=== PATIENT | female | born 1960 | race Caucasian/White ===

== ENCOUNTER → 2018-07-27 09:17 | Outpatient (CLI) | payer OTHER, SELFPAY ==
--- NOTE | 2018-07-27 08:00 | RAD_ITS ---
PROCEDURE: Fluoroscopic guided Hip Injection DATE: July 27, 2018. INDICATION: Female, 58 years old. Chronic pain. PHYSICIAN: Naeem Bunn M.D. MEDICATIONS: 6 mg of betamethasone and 3 cc of 1% lidocaine. 2% Lidocaine administered subcutaneously for local anesthesia. ACCESS SITE: Right hip. NEEDLE: 22-gauge spinal needle. FLUOROSCOPY TIME (if supplied): (1:01) minutes/seconds FINDINGS: The risks, benefits, and alternatives to the procedure were explained to the patient. The specific risks of bleeding, infection, and neurovascular injury were detailed and accepted. Witnessed informed consent was obtained. A 22-gauge spinal needle was positioned under radiographic fluoroscopic localization. Approximately 2 cc of Isovue-300 instilled for localization purposes. Medication was then injected. The patient tolerated the procedure well without any immediate complications. The patient was placed supine with head elevated and returned to the floor in stable condition. RAD/Inj/Asp Demond Jt Should/Hip/Knee IMPRESSION: 1. Successful fluoroscopic guided hip injection. Electronically Signed: Naeem Bunn, at 10:46 EST , Service support ,
== END ==
PROVIDERS: Family Provider Family Medicine; PCP Family Medicine; Referring Provider Specialist; Visit Provider Specialist
DX: M16.11 Unilateral primary osteoarthritis, right hip (principal)
CPT/HCPCS: 20610; 77002; Q9967; J0702

== ENCOUNTER 2020-08-01 15:05 | Outpatient (RCR) | payer OTHER, SELFPAY ==
[2020-08-01] MEDS: COVID-19 VACC, MRNA(PFIZER)/PF 30 MCG/0.3 ML SYRINGE IM (15:02)
[2020-08-22] MEDS: COVID-19 VACC, MRNA(PFIZER)/PF 30 MCG/0.3 ML SYRINGE IM (14:55)
== END 2020-10-28 23:59 ==
LOC: IMMUN 15:05
PROVIDERS: PCP Family Medicine; Referring Provider Family Medicine; Visit Provider Family Medicine
DX: Z23 Encounter for immunization (principal)
CPT/HCPCS: 0001A; 0002A; 91300

== ENCOUNTER 2024-03-28 11:55 | Outpatient (CLI) | payer MEDICARE, SELFPAY ==
[2024-03-28 12:38] LABS: Erythrocyte Sedimentation Rate 10 mm/hr (0-30)
[2024-03-28 12:41] LABS: Absolute Lymphocyte Count 2.04 X10^3/uL (0.83-4.51); Basophil# 0.06 X10^3/uL; Basophil% 0.9 % (0-1); Eosinophil# 0.19 X10^3/uL; Eosinophils% 2.8 % (0-5); Hematocrit 45.9 % (37-47); Hemoglobin 15.9 g/dL (12.0-15.0); Lymphocyte # 2.04 X10^3/ul (0.83-4.51); Lymphocyte % 30.3 % (19-41); Mean Corp Hgb Conc 34.6 g/dL (32-36); Mean Corpuscular Hgb 32.2 pg (27.0-32.0); Mean Corpuscular Volume 92.9 fL (81-99); Mean Platelet Vol. 8.9 fl (6.2-12.0); Monocyte# 0.42 X10^3/uL; Monocyte% 6.2 % (0-10); NRBC Flagged by Analyzer 0 % (0-5); Neutrophil % 59.5 % (47-70); Platelet Count 266 K/mm3 (150-450); RBC Distribution Width CV 12.3 % (11.6-14.6); RBC Distribution Width SD 41.8 fl (35.1-43.9); Red Blood Count 4.94 M/mm3 (4.2-5.4); White Blood Count 6.7 K/mm3 (4.4-11.0)
[2024-03-28 13:15] LABS: ALB/GLOB Ratio 0.9 RATIO (0.9-2.4); AST(SGOT) 10 U/L (15-37); Alanine Aminotransfer ALT/SGPT 25 U/L (13-56); Albumin, Serum 3.4 g/dL (3.2-5.0); Alkaline Phosphatase 109 U/L (45-117); Anion Gap 4 (5-15); BUN 16 mg/dL (7-18); BUN/Creat Ratio 18.3 RATIO (10-20); CRP 5.24 mg/L (0.0-3.0); Calcium,Total 9.6 mg/dL (8.5-10.1); Chloride 108 mmol/L (98-107); Creatinine, Serum 0.87 mg/dL (0.55-1.02); EST Glomerular Filtration Rate 69 mL/min (>60); Est Glom Filt Rate - Afr Amer 84 mL/min (>60); Free T3 2.3 pg/mL (2.18-3.98); Globulin 3.8 g/dL (2.2-4.2); Glucose 128 mg/dL (74-106); LDH 142 U/L (84-246); Potassium 3.9 mmol/L (3.5-5.1); Protein, Total 7.2 g/dL (6.4-8.2); Sodium Level 137 mmol/L (136-145); T4 Free Direct 0.78 ng/dL (0.76-1.46)
[2024-04-04 10:10] LABS: Anti-Centromere B Ab <0.2 AI (0.0-0.9); Anti-Chromatin <0.2 AI (0.0-0.9); Anti-Jo <0.2 AI (0.0-0.9); Anti-Scleroderma-70 AB <0.2 AI (0.0-0.9); Anti-dsDNA Ab <1 IU/mL (0-9); Beef <0.10 kU/L (Class 0); Chocolate <0.10 kU/L (Class 0); Codfish <0.10 kU/L (Class 0); Corn <0.10 kU/L (Class 0); Egg, Whole <0.10 kU/L (Class 0); Milk (Cow) <0.10 kU/L (Class 0); Mussels <0.10 kU/L (Class 0); Peanut <0.10 kU/L (Class 0); Pork <0.10 kU/L (Class 0); RNP Ab 0.4 AI (0.0-0.9); SJOGREN'S Anti-SS-A test < 0.2 AI (0.0-0.9); SJOGREN'S Anti-SS-B test < 0.2 AI (0.0-0.9); Salmon <0.10 kU/L (Class 0); Shrimp 0.24 kU/L (Class 0/I); Smith Ab <0.2 AI (0.0-0.9); Soybean <0.10 kU/L (Class 0); Tuna <0.10 kU/L (Class 0); Wheat <0.10 kU/L (Class 0)
[2024-04-05 06:10] LABS: ACCA 3 units (0-90); ALCA 14 units (0-60); AMCA 30 units (0-100); Albumin 3.4 g/dL (2.9-4.4); Alpha-1-Globulins 0.3 g/dL (0.0-0.4); Alpha-2-Globulins 0.7 g/dL (0.4-1.0); Cytoplasmic Ab (C-ANCA) <1:20 titer (Neg:<1:20); Endomysial Antibody IgA Negative (Negative); Gamma Globulin 1.3 g/dL (0.4-1.8); Immunoglobulin A 326 mg/dL (87-352); Immunoglobulin E 100 IU/mL (6-495); Immunoglobulin G 1204 mg/dL (586-1602); Immunoglobulin M 101 mg/dL (26-217); Perinuclear Ab (P-ANCA) <1:20 titer (Neg:<1:20); gASCA 31 units (0-50); t-Transglutaminase IgA <2 U/mL (0-3)
== END 2024-03-28 23:59 | disposition home or self-care (01) ==
PROVIDERS: PCP Family Medicine; Referring Provider Student in an Organized Health Care Education/Training Program; Visit Provider Student in an Organized Health Care Education/Training Program
DX: R19.7 Diarrhea, unspecified (principal)
CPT/HCPCS: 36415; 80053; 82784; 82785; 83516; 83615; 84165; 84439; 84443; 84481; 85025; 85652; 86003; 86005; 86036; 86037; 86140; 86225; 86235; 86255; 86334; 86671

== ENCOUNTER → 2024-03-29 | Outpatient (CLI) | payer MEDICARE, SELFPAY ==
[2024-04-02 15:07] LABS: Pancreatic Elastase, Fecal > 800 (>200)
== END | disposition home or self-care (01) ==
PROVIDERS: PCP Family Medicine; Referring Provider Student in an Organized Health Care Education/Training Program; Visit Provider Student in an Organized Health Care Education/Training Program
DX: K58.9 Irritable bowel syndrome, unspecified (principal); R19.7 Diarrhea, unspecified
CPT/HCPCS: 82653; 83630; 87177; 87209; 87329

== ENCOUNTER 2024-08-24 06:50 | Emergency (ER) | payer MEDICARE, SELFPAY ==
[2024-08-24 06:50] VITALS: BP 156/70; PULSE 56; RESP 16; TEMP 36.3; O2SAT 97; BMI 38.2
--- NOTE | 2024-08-24 07:07 | CT_ITS ---
PROCEDURE: ABDOMEN/PELVIS W IV CONT ONLY 08/24/2024 REASON FOR EXAM: LEFT SIDE PAIN TECHNIQUE: Abdomen and pelvis CT with intravenous contrast. Coronal and Sagittal reconstruction series were provided. PATIENT PREPARATION: Per protocol ORAL CONTRAST TYPE: None. CONTRAST: 74 cc Isovue 370 IV One or more dose reduction techniques were used (e.g., Automated exposure control, adjustment of the mA and/or kV according to patient size, use of iterative reconstruction technique. RADIATION DOSE SUMMARY: CTDlvol: 23.94 mGy DLP: 1385.16 mGycm COMPARISON: None available FINDINGS: Mild dependent basilar atelectasis. Sequela of previous granulomatous disease. The liver, adrenal glands, pancreas and spleen appear within limits. The gallbladder is not identified. CBD appears within limits. Appearance suggest possible bilateral left mildly larger than right parapelvic renal cysts versus collecting system dilation. Delayed images through the kidneys would have been helpful. The proximal ureters are nondilated. Symmetric nephrograms without perinephric stranding. No evidence of intrarenal stone identified. Aortoiliac atherosclerotic calcification. No abdominal aortic aneurysm. No adenopathy. No bowel dilation or free air. Normal caliber appendix without secondary signs. Status post apparent hysterectomy. The bladder is mostly collapsed and appears within limits. No pelvic free fluid. L2-3 spondylosis/discogenic change with disc space narrowing and minimal retrolisthesis L2 on L3. Mild anterolisthesis L4 on L5. Facet degenerative changes. Transitional appearing L5 segment. CT/Abdomen/Pelvis W IV Cont ONLY IMPRESSION: Appearance suggest possible bilateral left mildly larger than right parapelvic renal cysts versus collecting system dilation. Delayed images through the kidneys would have been helpful. The proximal ureter s are nondilated. Symmetric nephrograms without perinephric stranding. No evidence of intrarenal stone identified. No bowel dilation or free air. Normal caliber appendix without secondary signs. Lumbar spondylosis/discogenic change. Reading Location: [id number]
--- NOTE | 2024-08-24 07:08 | EX.ED.DYSGE1 ---
HPI History of Present Illness Chief Complaint: Flank Pain Informant: patient and spouse/S.O. Narrative Narrative: 64-year-old female presenting to the emergency room with nausea and left side pain. Patient states that last night after dinner she developed a sharp stabbing pain in the left side of her abdomen. She points to more the mid axillary line just under her rib cage. She notes the pain is constant. She notes it is nonradiating. She had a normal bowel movement this morning. She denies any fever or changes in stool. She did eat chili that was homemade and spicy. She notes a history of IBS. She denies history of kidney stones or frequent urinary tract infections. She denies any trauma or falls or lifting injuries. She denies rash. She notes she cannot find a position of comfort. Pain is not necessarily made worse with movement. PFSH PFSH Medical History Anxiety Hypertension Asthma De Quervain's tenosynovitis, left Squamous cell carcinoma Home Medications ?Medication ?Instructions ?Recorded ?Last Taken ?Type citalopram 30 mg capsule 20 mg PO DAILY 03/28/24 Unknown History famotidine 20 mg tablet 20 mg PO BID 03/28/24 Unknown History albuterol sulfate 90 mcg/actuation 2 inh inhalation Q4H PRN asthma 03/29/24 Unknown History breath activated powder inhaler atenolol 50 mg tablet 75 mg PO QDAY 03/29/24 Unknown History ondansetron 4 mg disintegrating 4 mg PO Q6H PRN PRN Nausea #15 tabs 08/24/24 Unknown Rx tablet oxycodone-acetaminophen 5 mg-325 1 tab PO Q6H PRN PRN Pain 3 days 08/24/24 Unknown Rx mg tablet #12 TABLETS Allergy/AdvReac Type Severity Reaction Status Date / Time adhesive Allergy Itching Verified 08/24/24 06:56 Sulfa (Sulfonamide Allergy Rash Verified 08/24/24 06:56 Antibiotics) meperidine AdvReac Vomiting Verified 08/24/24 06:56 ANESTHESIA AdvReac Vomiting Uncoded 03/29/24 13:23 Family History Father Acute angina High cholesterol Arthritis Heart disease Hyperlipidemia Myocardial infarction COPD (chronic obstructive pulmonary disease) Hypertension Mother Age: 86 Diabetes High cholesterol Arthritis Myocardial infarction Hypertension Thyroid disorder Asthma Sister Age: 67 Diabetes Diverticulosis GERD (gastroesophageal reflux disease) Anxiety Arthritis Heart disease Hypertension Esophageal spasm Grandfather High cholesterol Heart disease Myocardial infarction Hypertension Grandmother Diabetes Diverticulosis High cholesterol Arthritis Hypertension Parkinsons disease Meniere disease Hiatal hernia Surgical History History of squamous cell carcinoma excision History of surgery on left wrist Hx of cholecystectomy Social History current occupational status: retired Smoking Status: Never smoker alcohol intake: current alcohol intake frequency: holidays/special occasions only substance use type: does not use ROS ROS ED Constitutional Constitutional ED: Denies chills, fever(s) or weight loss Eyes Eyes: Denies change in vision or diplopia ENT ENT ED: Denies ear pain, rhinorrhea or sore throat Cardiovascular Cardiovascular: Denies chest pain, orthopnea, palpitations or racing heartbeat Respiratory/Chest Respiratory/Chest: Denies cough, dyspnea or orthopnea Gastrointestinal Gastrointestinal: Reports abdominal pain, nausea and vomiting; Denies diarrhea Genitourinary Genitourinary ED: Denies dysuria, hematuria or urinary frequency Musculoskeletal Musculoskeletal: Denies arthralgias or myalgias Integumentary Denies abscess or rash Neurologic Neurologic: Denies headache(s) or weakness Psychiatric Psychiatric: Denies anxiety, depression, suicidal ideation or suicidal thoughts Endocrine Endocrinology: Denies polydipsia, polyphagia or polyuria Allergic/Immunologic Allergic/Immunologic ED: Denies mouth swelling, tongue swelling or urticaria EXAM Physical Exam Const Vital Signs: 08/24/24 06:50 Temperature 97.3 F L Temperature Source Oral Pulse Rate 56 L Respiratory Rate 16 Blood Pressure 156/70 H Blood Pressure Mean 98 Pulse Ox 97 Oxygen Delivery Method Room Air Positive well nourished, well developed and obese General Appearance ED: well developed and NAD Nutritional Appearance: obese HEENT Reports normocephalic, head/scalp atraumatic and moist mucous membranes Eyes PERRL and EOMs intact bilaterally Neck no lymphadenopathy, supple and no JVD Resp normal respiratory effort and clear to auscultation bilaterally Cardio regular rate, regular rhythm and no murmurs GI normal to inspection, nondistended, normoactive bowel sounds and non-tender Palpation: soft Back/Spine no CVA tenderness and normal ROM Extremity normal to inspection General Extremety ED: Negative for edema General Extremity: Negative for edema Neuro oriented x3 and CN's II-XII intact bilaterally Sensorium / Orientation: alert Motor Exam: strength 5/5 throughout Psych mental status grossly normal Mood & Affect: Negative for depressed or tearful Skin no rashes or lesions noted and no wounds MDM MDM MDM Narrative Medical decision making narrative: Differential diagnosis includes but not limited to kidney stone diverticulitis colitis splenic injury renal infarct renal abscess UTI/pyelonephritis shingles muscular strain White count is normal at 8.5 hemoglobin of 16 platelet count of 306. Normal creatinine at 0.92. CT of the abdomen pelvis was obtained read by radiology reviewed by myself. Please see radiologist read. I do not see any ureterolithiasis. Do not see any inflammatory changes. Urinalysis obtained is nitrate and leukocyte Estrace negative. 0 reds 0 white cells 0-5 squamous cells. No obvious bacteria seen. Patient received a dose of Toradol as well as Zofran and IV fluids. I believe the patient can be discharged home at this point. She is updated with the above findings. We talked about monitoring for changes and return instructions particularly in the next 24 hours. I will write for a few oxycodone as well as Zofran. Patient is comfortable with the plan History & Record Review Discussion w/independent historian: Patient and Significant other Lab Data Attestation: I reviewed the patient's lab results. Labs: Laboratory Results - last 24 hr 08/24/24 08/24/24 08/24/24 06:56 08:02 08:13 WBC 8.5 RBC 4.97 Hgb 16.0 H Hct 47.3 H MCV 95.2 MCH 32.2 H MCHC 33.8 RDW Std Deviation 44.1 H RDW Coeff of Malena 12.6 Plt Count 306 MPV 9.0 Immature Gran % (Auto) 0.200 Neut % (Auto) 43.8 L Lymph % (Auto) 46.6 H [place] % (Auto) 7.4 Eos % (Auto) 1.2 Baso % (Auto) 0.8 Absolute Neuts (auto) 3.7 Absolute Lymphs (auto) 3.96 Nucleated RBC % 0 Sodium 138 Potassium 4.1 Chloride 104 Carbon Dioxide 24.0 Anion Gap 11 BUN 15 Creatinine 0.92 Estim Creat Clear Calc 67.98 Est GFR (MDRD) Non-Af 69 BUN/Creatinine Ratio 16.1 Glucose 137 H Calcium 9.7 Urine Color Cancelled Yellow Urine Clarity Cancelled Clear Urine pH Cancelled 5.0 Ur Specific [place] Cancelled 1.020 U Specif Grav (Refrac) Cancelled Urine Protein Cancelled 15 H Urine Glucose (UA) Cancelled Normal Urine Ketones Cancelled Negative Urine Occult Blood Cancelled Negative Urine Nitrite Cancelled Negative Urine Bilirubin Cancelled Negative Urine Urobilinogen Cancelled Normal Ur Leukocyte Esterase Cancelled Negative Urine RBC Cancelled 0 SEEN Urine WBC Cancelled 0 SEEN Ur Squamous Epith Cells Cancelled 0-5 SEEN Ur Transition Epith Cell Cancelled Ur Renal Epithelial Cell Cancelled Calcium Oxalate Crystal Cancelled Uric Acid Crystals Cancelled Triple Phos Crystals Cancelled Other Crystals Cancelled Amorphous Sediment Cancelled Urine Bacteria Cancelled 0 SEEN Hyaline Casts Cancelled Fine Granular Casts Cancelled Coarse Granular Casts Cancelled Waxy Casts Cancelled RBC Casts Cancelled WBC Casts Cancelled Urine Mucus Cancelled 0 SEEN Urine Trichomonas Cancelled Urine Yeast Cancelled Radiography Diagnostic Testing: Clinical Impression(s) from Imaging Studies Abdomen/Pelvis CT 08/24/24 07:07 IMPRESSION: Appearance suggest possible bilateral left mildly larger than right parapelvic renal cysts versus collecting system dilation. Delayed images through the kidneys would have been helpful. The proximal ureters are nondilated. Symmetric nephrograms without perinephric stranding. No evidence of intrarenal stone identified. No bowel dilation or free air. Normal caliber appendix without secondary signs. Lumbar spondylosis/discogenic change. Reading Location: [facility] Discharge Plan Triage Chief Complaint: Flank Pain ED Provider: Ashok Cruz Dx/Rx/DC Orders Clinical Impression: Acute left flank pain, Nausea Instructions: ED Flank Pain, Uncertain Cause Prescriptions: New oxycodone-acetaminophen 5-325 mg tablet 1 tab PO Q6H PRN PRN (Reason: Pain) 3 Days Qty: 12 0RF ondansetron 4 mg tablet,disintegrating 4 mg PO Q6H PRN PRN (Reason: Nausea) Qty: 15 0RF No Action citalopram 30 mg capsule 20 mg PO DAILY famotidine 20 mg tablet 20 mg PO BID atenolol 50 mg tablet 75 mg PO QDAY albuterol sulfate 90 mcg/actuation aerosol powdr breath activated 2 inh inhalation Q4H PRN (Reason: asthma) Primary Care Provider: Toi Gonsales Referrals: Toi Gonsales MD [Primary Care Provider] - 1-2 Days if not improving Activity Restrictions/Additional Instructions: If you have new or worsening symptoms or continued symptoms unable to see your primary care doctor please return to emergency particularly in the next 24 to 48 hours. We are performing a urine culture which can take 48 to 72 hours to return. If this is positive you will receive a phone call from the emergency department. Print Language: Ivorian Disposition Disposition: Home, Self Care
[2024-08-24] MEDS: Ketorolac 30 MG/ML Syringe IV (07:15)
[2024-08-24] MEDS: 0.9% Normal Saline (1000mL) 1,000 ML 1000 ML IV (07:15)
[2024-08-24] MEDS: Ondansetron 4 MG/2 ML Vial IV (07:15)
[2024-08-24 07:23] LABS: Absolute Lymphocyte Count 3.96 X10^3/uL (0.83-4.51); Absolute Neutrophil Count 3.7 X10^3/uL (2.0-7.7); Basophil# 0.07 X10^3/uL; Basophil% 0.8 % (0-1); Eosinophils% 1.2 % (0-5); Hematocrit 47.3 % (37-47); Lymphocyte # 3.96 X10^3/ul (0.83-4.51); Lymphocyte % 46.6 % (19-41); Mean Corp Hgb Conc 33.8 g/dL (32-36); Mean Corpuscular Hgb 32.2 pg (27.0-32.0); Mean Corpuscular Volume 95.2 fL (81-99); Monocyte# 0.63 X10^3/uL; Monocyte% 7.4 % (0-10); NRBC Flagged by Analyzer 0 % (0-5); Neutrophil # 3.72 X10^3/uL (2.7-7.7); Neutrophil % 43.8 % (47-70); Platelet Count 306 K/mm3 (150-450); RBC Distribution Width CV 12.6 % (11.6-14.6); RBC Distribution Width SD 44.1 fl (35.1-43.9); Red Blood Count 4.97 M/mm3 (4.2-5.4); White Blood Count 8.5 K/mm3 (4.4-11.0)
[2024-08-24 07:52] LABS: Anion Gap 11 (5-15); BUN 15 mg/dL (4-19); BUN/Creat Ratio 16.1 RATIO (10-20); Calcium,Total 9.7 mg/dL (7.6-11.0); Chloride 104 mmol/L (98-108); Creatinine, Serum 0.92 mg/dL (0.70-1.20); EST Glomerular Filtration Rate 69 (>60); Estimated Creatinine Clearance 67.98 ml/min (50-250); Glucose 137 mg/dL (70-99); Potassium 4.1 mmol/L (3.3-5.1); Sodium Level 138 mmol/L (133-145)
[2024-08-24 08:29] LABS: Bacteria 0 SEEN /hpf (None Seen); Mucous, Urine 0 SEEN /hpf (<or=2+); Red Blood Cells-Urine 0 SEEN /hpf (0-5); White Blood Cells 0 SEEN /hpf (0-5)
[2024-08-24 08:32] LABS: Color, Urine Yellow (Yellow); Glucose, Dipstick Normal (Normal); Ketone-Dipstick Negative (Negative); Leukocyte Esterase-Dipstick Negative /ul (Negative); Nitrite-Dipstick Negative (Negative); Occult Blood-Urine Negative /ul (Negative); Protein-Dipstick 15 mg/dl (Negative); Urine Bilirubin Dipstick Negative (Negative); Urine Clarity Clear (Clear); Urine Urobilinogen Normal (Normal)
[2024-08-24 08:40] LABS: Squamous Epithelial Cells - UA 0-5 SEEN /hpf (5-10)
[2024-08-24 08:53] VITALS: BP 132/76; PULSE 78; RESP 16; TEMP 37.1; O2SAT 99
== END 2024-08-24 08:54 | disposition home or self-care (01) ==
PROVIDERS: Emergency Provider Emergency Medicine; PCP Family Medicine; Visit Provider Emergency Medicine
DX: R10.9 Unspecified abdominal pain (principal); I10 Essential (primary) hypertension; R11.0 Nausea; F41.9 Anxiety disorder, unspecified; Z79.899 Other long term (current) drug therapy; Z85.828 Personal history of other malignant neoplasm of skin; Z90.49 Acquired absence of other specified parts of digestive tract
CPT/HCPCS: 74177; 80048; 81001; 85025; 87086; 96361; 96374; 96375; 99283; Q9967; A4216; J2405

== ENCOUNTER 2025-01-16 14:31 | Emergency (ER) | payer MEDICARE, SELFPAY ==
[2025-01-16 14:32] VITALS: BP 175/90; PULSE 58; RESP 16; TEMP 36.7; O2SAT 95; BMI 37.0
--- NOTE | 2025-01-16 14:59 | EX.ED.DYSGE1 ---
HPI History of Present Illness Chief Complaint: Abd Pain Narrative Narrative: Chief complaint and HPI: Left lower quadrant abdominal pain. 64-year-old female with past medical history of GERD, IBS, HTN presents for evaluation of left lower quadrant abdominal pain. Onset of symptoms since Tuesday. Associated symptoms are nausea, nonbloody/nonbilious emesis, nonbloody diarrhea. States her last colonoscopy was several years ago and unremarkable. she denies any fever, chills, shortness of breath, chest pain, dysuria. States she was seen at an urgent care center to the emergency department. Review of systems: See HPI Medications: As listed on the chart Allergies: As listed on the chart PFSH: Per chart Vital signs: As listed on the chart. Reviewed. Physical exam: Gen: A&O x3, NAD Head: Normocephalic, atraumatic Eyes: No sclera icterus, conjunctiva clear ENT: Moist mucous membranes Neck: Trachea midline, No JVD CV: RRR, no murmurs, no peripheral edema Resp: Lungs CTA BL, no w/r/c GI: Abd soft, non-distended, minimal tenderness in the left lower quadrant, no r/r/g Musc: Full ROM, no deformity Skin: Warm, dry Neuro: Alert, oriented, grossly intact, sensation intact Psych: Cooperative, appropriate mood and affect [facility] Medical History Anxiety Hypertension Asthma De Quervain's tenosynovitis, left Squamous cell carcinoma Home Medications ?Medication ?Instructions ?Recorded ?Last Taken ?Type citalopram 30 mg capsule 20 mg PO DAILY 03/28/24 Unknown History famotidine 20 mg tablet 20 mg PO BID 03/28/24 Unknown History albuterol sulfate 90 mcg/actuation 2 inh inhalation Q4H PRN asthma 03/29/24 Unknown History breath activated powder inhaler atenolol 50 mg tablet 75 mg PO QDAY 03/29/24 Unknown History oxycodone-acetaminophen 5 mg-325 1 tab PO Q6H PRN PRN Pain 3 days 08/24/24 Unknown Rx mg tablet #12 TABLETS pantoprazole 40 mg tablet,delayed 40 mg PO QDAY #30 tabs 10/04/24 Unknown Rx release vonoprazan 10 mg tablet (Voquezna) 10 mg PO QDAY #30 tabs 12/19/24 Unknown Rx Allergy/AdvReac Type Severity Reaction Status Date / Time adhesive Allergy Itching Verified 08/24/24 06:56 Sulfa (Sulfonamide Allergy Rash Verified 08/24/24 06:56 Antibiotics) meperidine AdvReac Vomiting Verified 08/24/24 06:56 ANESTHESIA AdvReac Vomiting Uncoded 03/29/24 13:23 Family History Father Acute angina High cholesterol Arthritis Heart disease Hyperlipidemia Myocardial infarction COPD (chronic obstructive pulmonary disease) Hypertension Mother Age: 86 Diabetes High cholesterol Arthritis Myocardial infarction Hypertension Thyroid disorder Asthma Sister Age: 67 Diabetes Diverticulosis GERD (gastroesophageal reflux disease) Anxiety Arthritis Heart disease Hypertension Esophageal spasm Grandfather High cholesterol Heart disease Myocardial infarction Hypertension Grandmother Diabetes Diverticulosis High cholesterol Arthritis Hypertension Parkinsons disease Meniere disease Hiatal hernia Surgical History History of squamous cell carcinoma excision History of surgery on left wrist Hx of cholecystectomy Social History current occupational status: retired Smoking Status: Never smoker alcohol intake: current alcohol intake frequency: holidays/special occasions only substance use type: does not use EXAM Physical Exam Const Vital Signs: 01/16/25 14:32 01/16/25 16:31 Temperature 98.1 F 97.8 F Temperature Source Oral Oral Pulse Rate 58 L 58 L Respiratory Rate 16 18 Blood Pressure 175/90 H 194/85 H Blood Pressure Mean 118 121 Pulse Ox 95 97 Oxygen Delivery Method Room Air Room Air MDM MDM MDM Narrative Medical decision making narrative: 64-year-old female with past medical history of GERD, IBS, HTN presents for evaluation of left lower quadrant abdominal pain. Onset of symptoms since Tuesday. Associated symptoms are nausea, nonbloody/nonbilious emesis, nonbloody diarrhea. Differential diagnosis includes but is not limited to diverticulitis, gastroenteritis, IBS, viral gastroenteritis, electrolyte abnormality, UTI. NS bolus, Zofran, morphine ordered for symptoms. Abdominal pain workup ordered including CT abdomen pelvis. CBC shows mild leukocytosis of 13 with hemoconcentration of 17.6. Likely secondary to mild dehydration from her diarrhea. On chart review, patient has hemoconcentration in the past on previous labs. CMP relatively unremarkable. No transaminitis. No CARLTON. Lipase unremarkable. UA is positive for blood and bacteria however this is a dirty sample with multiple squamous epithelial cells. Negative leuk esterase and WBCs. Will not treat for UTI. Will send for culture. Patient not endorsing any dysuria or frequency. CT abdomen pelvis shows no acute intra-abdominal pathology. 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 Cholecystectomy and hysterectomy. Appendix unremarkable. While in the emergency department, patient did have increasing blood pressure however she admits that she did not take any of her atenolol today. Blood pressure has increased with pain control. At this point in time, no clear etiology to explain patient's symptoms. May be viral illness versus IBS. Recommend following up with GI who she follows with. Will prescribe Bentyl, first dose given here. Return precautions explained. She confirmed understand the plan. Patient stable to discharge home. Impression: 1. Diarrhea 2. Left lower quadrant abdominal pain 3. History of IBS Lab Data Labs: Laboratory Results - last 24 hr 01/16/25 01/16/25 14:50 15:25 WBC 13.0 H RBC 5.43 H Hgb 17.6 H Hct 51.0 H MCV 93.9 MCH 32.4 H MCHC 34.5 RDW Std Deviation 42.5 RDW Coeff of Malena 12.3 Plt Count 311 MPV 8.9 Immature Gran % (Auto) 0.300 Neut % (Auto) 82.9 H Lymph % (Auto) 12.4 L [place] % (Auto) 3.9 Eos % (Auto) 0.2 Baso % (Auto) 0.3 Absolute Neuts (auto) 10.8 H Absolute Lymphs (auto) 1.61 Nucleated RBC % 0 Sodium 136 Potassium 3.7 Chloride 100 Carbon Dioxide 21.2 Anion Gap 14 BUN 15 Creatinine 1.00 Estim Creat Clear Calc 61.46 Est GFR (MDRD) Non-Af 63 BUN/Creatinine Ratio 14.7 Glucose 184 H Calcium 10.3 Total Bilirubin 0.56 AST 23 ALT 21 Alkaline Phosphatase 121 H Total Protein 7.7 Albumin 4.1 Globulin 3.6 Albumin/Globulin Ratio 1.2 Lipase 61 Urine Color Yellow Urine Clarity Turbid Urine pH 5.0 Ur Specific [place] 1.030 Urine Protein 30 H Urine Glucose (UA) 100 H Urine Ketones 5 H Urine Occult Blood 10 H Urine Nitrite Negative Urine Bilirubin Negative Urine Urobilinogen Normal Ur Leukocyte Esterase Negative Urine RBC 0-5 SEEN Urine WBC 0-5 SEEN Ur Squamous Epith Cells 10-25 SEEN Amorphous Sediment 4+ Urine Bacteria 3+ Urine Mucus 0 SEEN Radiography Diagnostic Testing: Clinical Impression(s) from Imaging Studies Abdomen/Pelvis CT 01/16/25 15:45 IMPRESSION: *No acute intra-abdominal or pelvic abnormality. 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 *Post-surgical changes: cholecystectomy and hysterectomy. Reading Location: [facility] Discharge Plan Triage Chief Complaint: Abd Pain ED Provider: Brian Wayne Dx/Rx/DC Orders Prescriptions: No Action citalopram 30 mg capsule 20 mg PO DAILY famotidine 20 mg tablet 20 mg PO BID atenolol 50 mg tablet 75 mg PO QDAY albuterol sulfate 90 mcg/actuation aerosol powdr breath activated 2 inh inhalation Q4H PRN (Reason: asthma) pantoprazole 40 mg tablet,delayed release (DR/EC) 40 mg PO QDAY Qty: 30 1RF oxycodone-acetaminophen 5-325 mg tablet 1 tab PO Q6H PRN PRN (Reason: Pain) 3 Days Qty: 12 0RF Voquezna 10 mg tablet 10 mg PO QDAY Qty: 30 3RF Primary Care Provider: Toi Gonsales Referrals: Toi Gonsales MD [Primary Care Provider] - Print Language: Tunisian
[2025-01-16 15:07] LABS: Hematocrit 51.0 % (37-47); Hemoglobin 17.6 g/dL (12.0-15.0); Immature Granulocytes Count 0.040 X10^3/uL (0.0-0.0); Mean Corp Hgb Conc 34.5 g/dL (32-36); Mean Corpuscular Volume 93.9 fL (81-99); Mean Platelet Vol. 8.9 fl (6.2-12.0); NRBC Flagged by Analyzer 0 % (0-5); Platelet Count 311 K/mm3 (150-450); RBC Distribution Width CV 12.3 % (11.6-14.6); RBC Distribution Width SD 42.5 fl (35.1-43.9); Red Blood Count 5.43 M/mm3 (4.2-5.4); White Blood Count 13.0 K/mm3 (4.4-11.0)
[2025-01-16] MEDS: 0.9% Normal Saline (1000mL) 1,000 ML 999 ML IV (15:30)
[2025-01-16 15:38] LABS: Mucous, Urine 0 SEEN /hpf (<or=2+)
[2025-01-16 15:45] LABS: AST(SGOT) 23 U/L (<=31); Alanine Aminotransfer ALT/SGPT 21 U/L (<=34); Albumin, Serum 4.1 g/dL (3.4-4.8); Alkaline Phosphatase 121 U/L (35-104); Anion Gap 14 (5-15); BUN 15 mg/dL (4-19); BUN/Creat Ratio 14.7 RATIO (10-20); Calcium,Total 10.3 mg/dL (7.6-11.0); Carbon Dioxide 21.2 mmol/L (21.0-32.0); Chloride 100 mmol/L (98-108); Estimated Creatinine Clearance 61.46 ml/min (50-250); Globulin 3.6 g/dL (2.2-4.2); Glucose 184 mg/dL (70-99); Lipase 61 U/L (13-75); Potassium 3.7 mmol/L (3.3-5.1)
--- NOTE | 2025-01-16 15:45 | CT_ITS ---
PROCEDURE: ABDOMEN/PELVIS W IV CONT ONLY 01/16/2025 REASON FOR EXAM: LEFT LOWER QUADRANT ABDOMINAL PAIN TECHNIQUE: ABDOMEN/PELVIS W IV CONT ONLY Coronal and Sagittal reconstruction series were provided. CONTRAST: Isovue-300 VOLUME: 99 mL One or more dose reduction techniques were used (e.g., Automated exposure control, adjustment of the mA and/or kV according to patient size, use of iterative reconstruction technique. RADIATION DOSE SUMMARY: CTDlvol: 9+ 22 mGy DLP: 1312 mGycm FINDINGS: *Lower chest: Lung bases are clear. *Soft tissues: Peripheral soft tissues unremarkable. *Bones: Degenerative changes of the spine. *Vasculature: Normal caliber abdominal aorta. No suspicious lymphadenopathy. *Liver: Unremarkable. *Gallbladder/Biliary: Gallbladder surgically absent. No biliary dilation. *Pancreas: Unremarkable. *Spleen: Small calcifications, likely sequelae of prior granulomatous infection. *Adrenal glands: Unremarkable. *Kidneys/Urinary tract: Symmetric enhancement of the kidneys. Bilateral renal sinuses are normal. No hydronephrosis. Urinary bladder unremarkable. *Reproductive organs: Uterus surgically absent. *Bowel: Normal caliber of large and small bowel without surrounding inflammatory changes. Appendix not specifically mentioned, but no abnormality reported. CT/Abdomen/Pelvis W IV Cont ONLY IMPRESSION: *No acute intra-abdominal or pelvic abnormality. 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 *Post-surgical changes: cholecystectomy and hysterectomy. Reading Location: [id number]
[2025-01-16 15:50] LABS: Color, Urine Yellow (Yellow); Glucose, Dipstick 100 mg/dl (Normal); Ketone-Dipstick 5 mg/dl (Negative); Leukocyte Esterase-Dipstick Negative /ul (Negative); Nitrite-Dipstick Negative (Negative); Occult Blood-Urine 10 /ul (Negative); Protein-Dipstick 30 mg/dl (Negative); Specific Gravity, Urine 1.030 (1.002-1.030); Urine Bilirubin Dipstick Negative (Negative)
[2025-01-16 16:31] VITALS: BP 194/85; PULSE 58; RESP 18; TEMP 36.6; O2SAT 97
[2025-01-16 16:33] LABS: Squamous Epithelial Cells - UA 10-25 SEEN /hpf (5-10)
[2025-01-16 16:35] LABS: Red Blood Cells-Urine 0-5 SEEN /hpf (0-5)
[2025-01-16 17:10] VITALS: BP 169/70; PULSE 58; RESP 17; TEMP 36.4; O2SAT 99
[2025-01-16 17:46] VITALS: BP 161/73; PULSE 57; RESP 14; TEMP 37.1; O2SAT 99
== END 2025-01-16 17:54 | disposition home or self-care (01) ==
PROVIDERS: Emergency Provider Surgery; PCP Family Medicine; Visit Provider Surgery
DX: R10.32 Left lower quadrant pain (principal); R19.7 Diarrhea, unspecified; R11.2 Nausea with vomiting, unspecified; I10 Essential (primary) hypertension; Z86.39 Personal history of other endocrine, nutritional and metabolic disease; F41.9 Anxiety disorder, unspecified; Z79.899 Other long term (current) drug therapy; K21.9 Gastro-esophageal reflux disease without esophagitis; Z85.828 Personal history of other malignant neoplasm of skin; Z90.49 Acquired absence of other specified parts of digestive tract
CPT/HCPCS: 74177; 80053; 81001; 83690; 85025; 87086; 87088; 96361; 96374; 96375; 99284; Q9967; A4216; J2405

== ENCOUNTER → 2025-01-18 | Outpatient (CLI) | payer MEDICARE, SELFPAY ==
[2025-01-18 09:11] LABS: Hematocrit 44.4 % (37-47); Hemoglobin 15.4 g/dL (12.0-15.0); Immature Granulocytes Count 0.020 X10^3/uL (0.0-0.0); Mean Corp Hgb Conc 34.7 g/dL (32-36); Mean Corpuscular Volume 93.9 fL (81-99); Mean Platelet Vol. 8.9 fl (6.2-12.0); NRBC Flagged by Analyzer 0 % (0-5); Platelet Count 271 K/mm3 (150-450); RBC Distribution Width CV 12.1 % (11.6-14.6); RBC Distribution Width SD 41.8 fl (35.1-43.9); Red Blood Count 4.73 M/mm3 (4.2-5.4); White Blood Count 7.8 K/mm3 (4.4-11.0)
[2025-01-23 06:08] LABS: Calprotectin, Stool 252 ug/g (0-120)
== END | disposition home or self-care (01) ==
PROVIDERS: PCP Family Medicine; Referring Provider Student in an Organized Health Care Education/Training Program; Visit Provider Student in an Organized Health Care Education/Training Program
DX: R19.7 Diarrhea, unspecified (principal); K58.9 Irritable bowel syndrome, unspecified
CPT/HCPCS: 36415; 83630; 83993; 85025; 87177; 87209; 87329; 87493; 87506

== ENCOUNTER 2025-03-07 08:08 | Day surgery (SDC) | payer MEDICARE, SELFPAY ==
[2025-03-07] VITALS (10 sets, daily range): BP systolic 104–138; BP diastolic 66–81; PULSE 53–66; RESP 16–18; TEMP 36.1–36.5; O2SAT 92–100; BMI 37.5
--- NOTE | 2025-03-07 08:24 | PCM.HP.STD ---
HPI - General General Date of Admission: 03/07/25 Date of Service: 03/07/25 Chief Complaint: Diarrhea HPI Narrative ALAN RENAE, is a 65 F who presents [Chief Complaint: IBS BGI established in Mar 2024 with chronic diarrhea. Previously seeing GI at [facility]. Last colonoscopy in 2018 with normal findings. Biochemical work up 04.05.24; Hgb H 15.9, CRP H 5.24, RAST shrimp H .24, IBD panel normal, Celiac normal Stool 04.05.24; elastase normal, negative lactoferrin, negative ova/parasite, negative Giardia Last OV 2.6. Pt doing well with loose stools just once per week. Feels constipated in between. Garlic is a trigger. taking famotidine BID and sleeping upright in her recliner. Continue famotidine and start fiber supplement [facility] ED 4.12.14 with left flank pain and nausea. Work up unremarkable CT abd/pelvis 4.09.14; Appearance suggest possible bilateral left mildly larger than right parapelvic renal cysts versus collecting system dilation. Delayed images through the kidneys would have been helpful. The proximal ureters are nondilated. Symmetric nephrograms without perinephric stranding. No evidence of intrarenal stone identified. No bowel dilation or free air. Normal caliber appendix without secondary signs.Lumbar spondylosis/discogenic change. OV 5..25; Pt has been doing well since her ER visit. She was diagnosed with musculoskeletal pain. She has had a few instances over the past week with reflux and regurgitation. This has been after eating greasy foods. She continues to take famotidine at least once a day and sometimes twice a day if needed. [facility] ED 8 with abd pain. Work up unremarkable OV 01.18.25 patient continues to have left lower quadrant pain. Pain is a dull and can be sharp at times. It is exacerbated with certain movements. She has not had any nausea, vomiting or diarrhea since her ER visit. Bentyl has not been helpful however left over oxycodone has relieved her pain. Patient denies fevers or feeling like she is ill. ] [facility] Medical History Wears glasses Cancer Migraine headache Syncope Dietary restriction Gastric reflux History of hiatal hernia History of IBS Non-smoker CPAP (continuous positive airway pressure) dependence Sleep apnea Anxiety Hypertension Asthma De Quervain's tenosynovitis, left Squamous cell carcinoma Home Medications ?Medication ?Instructions ?Recorded ?Last Taken ?Type citalopram 30 mg capsule 20 mg PO DAILY 03/28/24 Unknown History albuterol sulfate 90 mcg/actuation 2 inh inhalation Q4H PRN asthma 03/29/24 Unknown History breath activated powder inhaler atenolol 50 mg tablet 75 mg PO QDAY 03/29/24 Unknown History vonoprazan 10 mg tablet (Voquezna) 10 mg PO QDAY #30 tabs 12/19/24 Unknown Rx Allergy/AdvReac Type Severity Reaction Status Date / Time adhesive Allergy Itching Verified 03/05/25 12:21 Sulfa (Sulfonamide Allergy Rash Verified 03/05/25 12:21 Antibiotics) meperidine AdvReac Vomiting Verified 03/05/25 12:21 ANESTHESIA AdvReac Vomiting Uncoded 03/29/24 13:23 Family History Father Acute angina High cholesterol Arthritis Heart disease Hyperlipidemia Myocardial infarction COPD (chronic obstructive pulmonary disease) Hypertension Mother Age: 86 Diabetes High cholesterol Arthritis Myocardial infarction Hypertension Thyroid disorder Asthma Sister Age: 67 Diabetes Diverticulosis GERD (gastroesophageal reflux disease) Anxiety Arthritis Heart disease Hypertension Esophageal spasm Grandfather High cholesterol Heart disease Myocardial infarction Hypertension Grandmother Diabetes Diverticulosis High cholesterol Arthritis Hypertension Parkinsons disease Meniere disease Hiatal hernia Surgical History History of hysterectomy History of squamous cell carcinoma excision History of surgery on left wrist Hx of cholecystectomy Social History current occupational status: retired Smoking Status: Never smoker alcohol intake: current alcohol intake frequency: holidays/special occasions only substance use type: does not use ROS Constitutional Constitutional: Denies fatigue, fever(s), poor appetite, weight gain or weight loss Gastrointestinal Gastrointestinal: Denies belching, bloating, change in bowel habits, change in stool character, chewing difficulty, coffee ground emesis, constipation, cramping, diarrhea, dyspepsia, dysphagia, early satiety, excessive flatus, fecal incontinence, heartburn, hematemesis, hematochezia, hemorrhoids, loose stools, melena, nausea, odynophagia, rectal bleeding, tenesmus, vomiting or weight changes Physical Exam Const alert, oriented x3, no apparent distress and healthy appearing General Appearance: cooperative GI normal to inspection, nondistended, normoactive bowel sounds, soft to palpation, non-tender and non-distended Percussion: normal to percussion Rectal Exam: deferred Assessment & Plan Assessment/Plan (1) GERD (gastroesophageal reflux disease): (2) IBS (irritable bowel syndrome): (3) Diarrhea: PLAN: er Assessment and Plan Assessment and Plan (1) Diarrhea: Status: Acute Plan: Neda is a 64-year-old female patient here today for hospital follow-up. Patient has a history of IBS and GERD. Patient presented to [facility] ED for left lower quadrant pain nausea, vomiting and diarrhea. Workup in the ED with mild leukocytosis but otherwise unremarkable. CT abdomen pelvis negative for acute abnormality. UA was contaminated but showed blood, ketones, glucose and protein. Sent for culture. Patient continues to have the left lower quadrant pain today. She denies any further nausea, vomiting or diarrhea. Pain is not exacerbated with oral intake. Pain is worse with certain movements. On exam she has no tenderness or guarding to the left lower quadrant. Will order stool testing for infection or inflammation. I have low suspicion for GI etiology. Patient may have UTI, renal calculi or musculoskeletal pain. Will also repeat CBC and CMP. - CBC and CMP - Stool testing - Consider etiology outside of the GI tract including kidney stone or UTI urine culture pending - Follow-up as needed Orders: Orders Giardia Lamblia, Stool EIA Today R19.7 - Diarrhea, unspecified ENTERIC PATHOGEN PANEL STOOL Today K58.9 - Irritable bowel syndrome, unspecified, R19.7 - Diarrhea, unspecified Ova and Parasites [id number] Today K58.9 - Irritable bowel syndrome, unspecified, R19.7 - Diarrhea, unspecified Stool Lactoferrin/WBC Today K58.9 - Irritable bowel syndrome, unspecified, R19.7 - Diarrhea, unspecified Calprotectin, Stool Today R19.7 - Diarrhea, unspecified CDIFF (PCR) Today R19.7 - Diarrhea, unspecified CBC W/Diff, Automated Today R19.7 - Diarrhea, unspecified
[2025-03-07] MEDS: Lactated Ringers 1,000 ML 15 ML IV (09:03)
--- NOTE | 2025-03-07 09:14 | PRE.ANES_ITS ---
ASA Classification* ASA Classification ASA Classification: 2 Assessment & Plan Anesthesia* Anesthesia Assessment Anesthesia Assessment: Discussed sedation and/or anesthesia options, risks, benefits, and alternatives with patient/parents/legal guardian/POA. Questions invited. The patient/parents/legal guardian/POA seems to understand and agrees to proceed with anesthesia plan. Reviewed the physical assessment, medical history, allergy history and patient home medications list prior to surgery/procedure/anesthetic and documented any changes. Performed airway and anesthesia risk assessments. Anesthesia Type Anesthesia Type: MAC History Source History Obtained from:: Patient and Chart Anesthesia Focused Assessment* Temperature: 97.7 F Pulse Rate: 53 Blood Pressure: 138/81 Respiratory Rate: 18 Pulse Ox: 100 Oxygen Delivery Method: Room Air Airway Assessment Mouth opens: >3 cm Mallampati Score: II Teeth Condition: Intact Neck Range of motion (ROM): Full ROM Labs Anesthesia Preop lab: CBC WBC, (4.4-11.0) 7.8 K/mm3 01/18/25, 08:05 RBC, (4.2-5.4) 4.73 M/mm3 01/18/25, 08:05 Hgb, (12.0-15.0) 15.4 g/dL H 01/18/25, 08:05 Hct, (37-47) 44.4 % 01/18/25, 08:05 Plt Count, (150-450) 271 K/mm3 01/18/25, 08:05 CHEMISTRY Potassium, (3.3-5.1) 3.7 mmol/L 01/16/25, 14:50 Sodium, (133-145) 136 mmol/L 01/16/25, 14:50 BUN, (4-19) 15 mg/dL 01/16/25, 14:50 Creatinine, (0.70-1.20) 1.00 mg/dL 01/16/25, 14:50 Glucose, (70-99) 184 mg/dL H 01/16/25, 14:50 TSH, (0.358-3.740) 2.460 uIU/mL 03/28/24, 12:07 COAG Pre-Assessment Diagnosis/Proposed Procedure Planned Operative Procedure(s): COLONOSCOPY Anesthesia History Anesthesia History - environmental health safety manager: Anesthesia History - environmental health safety manager Hx Hospitalization No 03/05/25 12:24 Any Problems With Anesthesia Yes: NAUSEA, DIFFICULTY 03/05/25 12:24 WAKING UP Cholinesterase deficiency No 03/05/25 12:24 You/Your Family Experience No 03/05/25 12:24 fever (hyperthermia) with Relationship Recent Exposure to Contagious No 03/07/25 08:59 Disease Does patient have nerve No 03/05/25 12:24 stimulator Patient instructed to have device shut off --Does patient have Pacemaker No 03/07/25 08:59 or ICD? When Was Last Pacemaker Check QUESTION #4 FULL TEXT: You/Your Family Experience fever (hyperthermia) with Anesthesia Last Oral Intake Last Oral intake: Last Oral Intake NPO since 05:30 03/07/25 08:59 Meds taken in AM with sips of Yes 03/07/25 08:59 water? Meds patient instructed to atenolol 03/07/25 08:59 take am of surgery PONV PONV - environmental health safety manager: PONV - environmental health safety manager Female Yes 03/05/25 12:24 HX of Motion Sickness No 03/05/25 12:24 HX of N/V After Surgery Yes 03/05/25 12:24 Non-Smoker Yes 03/05/25 12:24 Duration of Surgery greater No 03/05/25 12:24 than 60 minutes Number of Risk Factors 3 03/05/25 12:24 PONV Score Moderate Risk 03/05/25 12:24 Height & Weight Height & Weight: Anesthesia: Height & Weight Height 5 ft 3 in 03/07/25 08:59 Weight: 96 kg 03/07/25 08:59 Body Mass Index (BMI) 37.5 03/07/25 08:59 Respiratory Assessment Respiratory Assessment - environmental health safety manager: Respiratory Tract Infection Hx - environmental health safety manager Hx Respiratory Tract Infection No 03/05/25 12:24 STOP Sleep Apnea STOP Sleep Apnea - environmental health safety manager: STOP Sleep Apnea - environmental health safety manager Hx Hypertension Yes 03/05/25 12:24 Hx Sleep Apnea Yes: SLEEPS IN RECLINER 03/05/25 12:24 CPAP No 03/05/25 12:24 BIPAP No 03/05/25 12:24 Do you snore loudly (louder than talking or can be heard Do you often feel tired/ fatigued/ sleepy during daytime? Has anyone observed you stop breathing during sleep? STOP Results Positive 03/05/25 12:24 QUESTION #5 FULL TEXT : Do you snore loudly (louder than talking or can be heard through closed doors)? Tobacco Use History Tobacco Use History - environmental health safety manager: Tobacco Use History - environmental health safety manager Tobacco Use Smoking Status Never smoker 03/05/25 12:24 Hx Tobacco Use No 03/05/25 12:24 Years Smoking Packs Smoked per Day Smoking Cessation Date was within the last 15 years Hx Smoking Cessation Date Hx Smoking Cessation Counseling Hematologic Medial History Hematologic Hx - environmental health safety manager: Hematologic Medical Hx - neonatal surgeon Hx of Blood Transfusion No 03/05/25 12:24 Hx of Transfusion in last 3 No 03/05/25 12:24 Months Date of Last Transfusion (if within last 3 months) Ever experience any problems No 03/05/25 12:24 with transfusion(s)? Specify any problems Hx of Preganancy in last 3 No 03/05/25 12:24 Months Nurse Filling Out Transfusion VLEHMAN 03/05/25 12:24 & Questions: Date: 03/05/25 03/05/25 12:24 Time: 12:33 03/05/25 12:24 Patient unable to answer at this time (ie. confused, unrespo /Reproduction History /Reproductive History - environmental health safety manager: /Reproductive Hx- environmental health safety manager Hx Now No 03/05/25 12:24 Gestational Age (in weeks): EDC: Hx Hx Para Hx Section SAB No 03/05/25 12:24 Active Medications Active Medications: Current Medications Generic Name Dose Route Start Last Admin Trade Name Freq PRN Reason Stop Dose Admin Lactated Ringer's 1,000 mls @ 15 mls/hr 03/07/25 08:45 03/07/25 09:03 IV 15 mls/hr .Q48H MAURICIO Administration PFSH Medical History Wears glasses Cancer Migraine headache Syncope Dietary restriction Gastric reflux History of hiatal hernia History of IBS Non-smoker CPAP (continuous positive airway pressure) dependence Sleep apnea Anxiety Hypertension Asthma De Quervain's tenosynovitis, left Squamous cell carcinoma Home Medications ?Medication ?Instructions ?Recorded ?Last Taken ?Type citalopram 30 mg capsule 20 mg PO DAILY 03/28/24 Unkn own History albuterol sulfate 90 mcg/actuation 2 inh inhalation Q4 H PRN asthma 03/29/24 Unknown History breath activated powder inhaler atenolol 50 mg tablet 75 mg PO QDAY 03/29/2403/07 05:30 History vonoprazan 10 mg tablet (Voquezna) 10 mg PO QDAY #30 t abs 12/19/24 Unknown Rx Allergy/AdvReac Type Severity Reaction Status Date / Time adhesive Allergy Itching Verified 03/07/25 08:58 Sulfa (Sulfonamide Allergy Rash Verified 03/07/25 08:58 Antibiotics) meperidine AdvReac Vomiting Verified 03/07/25 08:58 ANESTHESIA AdvReac Vomiting Uncoded 03/29/24 13:23 Family History Father Acute angina High cholesterol Arthritis Heart disease Hyperlipidemia Myocardial infarction COPD (chronic obstructive pulmonary disease) Hypertension Mother Age: 86 Diabetes High cholesterol Arthritis Myocardial infarction Hypertension Thyroid disorder Asthma Sister Age: 67 Diabetes Diverticulosis GERD (gastroesophageal reflux disease) Anxiety Arthritis Heart disease Hypertension Esophageal spasm Grandfather High cholesterol Heart disease Myocardial infarction Hypertension Grandmother Diabetes Diverticulosis High cholesterol Arthritis Hypertension Parkinsons disease Meniere disease Hiatal hernia Surgical History History of hysterectomy History of squamous cell carcinoma excision History of surgery on left wrist Hx of cholecystectomy Social History current occupational status: retired Smoking Status: Never smoker alcohol intake: current alcohol intake frequency: holidays/special occasions only substance use type: does not use Review of Systems (Anesthesia) ROS Narrative System reviewed and no additional complaints, except as documented.
--- NOTE | 2025-03-07 09:14 | PRE.ANES_ITS ---
ASA Classification* ASA Classification ASA Classification: 2 Assessment & Plan Anesthesia* Anesthesia Assessment Anesthesia Assessment: Discussed sedation and/or anesthesia options, risks, benefits, and alternatives with patient/parents/legal guardian/POA. Questions invited. The patient/parents/legal guardian/POA seems to understand and agrees to proceed with anesthesia plan. Reviewed the physical assessment, medical history, allergy history and patient home medications list prior to surgery/procedure/anesthetic and documented any changes. Performed airway and anesthesia risk assessments. Anesthesia Type Anesthesia Type: MAC History Source History Obtained from:: Patient and Chart Anesthesia Focused Assessment* Temperature: 97.7 F Pulse Rate: 53 Blood Pressure: 138/81 Respiratory Rate: 18 Pulse Ox: 100 Oxygen Delivery Method: Room Air Airway Assessment Mouth opens: >3 cm Mallampati Score: II Teeth Condition: Intact Neck Range of motion (ROM): Full ROM Labs Anesthesia Preop lab: CBC WBC, (4.4-11.0) 7.8 K/mm3 01/18/25, 08:05 RBC, (4.2-5.4) 4.73 M/mm3 01/18/25, 08:05 Hgb, (12.0-15.0) 15.4 g/dL H 01/18/25, 08:05 Hct, (37-47) 44.4 % 01/18/25, 08:05 Plt Count, (150-450) 271 K/mm3 01/18/25, 08:05 CHEMISTRY Potassium, (3.3-5.1) 3.7 mmol/L 01/16/25, 14:50 Sodium, (133-145) 136 mmol/L 01/16/25, 14:50 BUN, (4-19) 15 mg/dL 01/16/25, 14:50 Creatinine, (0.70-1.20) 1.00 mg/dL 01/16/25, 14:50 Glucose, (70-99) 184 mg/dL H 01/16/25, 14:50 TSH, (0.358-3.740) 2.460 uIU/mL 03/28/24, 12:07 COAG Pre-Assessment Diagnosis/Proposed Procedure Planned Operative Procedure(s): COLONOSCOPY Anesthesia History Anesthesia History - critical care physician assistant: Anesthesia History - critical care physician assistant Hx Hospitalization No 03/05/25 12:24 Any Problems With Anesthesia Yes: NAUSEA, DIFFICULTY 03/05/25 12:24 WAKING UP Cholinesterase deficiency No 03/05/25 12:24 You/Your Family Experience No 03/05/25 12:24 fever (hyperthermia) with Relationship Recent Exposure to Contagious No 03/07/25 08:59 Disease Does patient have nerve No 03/05/25 12:24 stimulator Patient instructed to have device shut off --Does patient have Pacemaker No 03/07/25 08:59 or ICD? When Was Last Pacemaker Check QUESTION #4 FULL TEXT: You/Your Family Experience fever (hyperthermia) with Anesthesia Last Oral Intake Last Oral intake: Last Oral Intake NPO since 05:30 03/07/25 08:59 Meds taken in AM with sips of Yes 03/07/25 08:59 water? Meds patient instructed to atenolol 03/07/25 08:59 take am of surgery PONV PONV - critical care physician assistant: PONV - critical care physician assistant Female Yes 03/05/25 12:24 HX of Motion Sickness No 03/05/25 12:24 HX of N/V After Surgery Yes 03/05/25 12:24 Non-Smoker Yes 03/05/25 12:24 Duration of Surgery greater No 03/05/25 12:24 than 60 minutes Number of Risk Factors 3 03/05/25 12:24 PONV Score Moderate Risk 03/05/25 12:24 Height & Weight Height & Weight: Anesthesia: Height & Weight Height 5 ft 3 in 03/07/25 08:59 Weight: 96 kg 03/07/25 08:59 Body Mass Index (BMI) 37.5 03/07/25 08:59 Respiratory Assessment Respiratory Assessment - critical care physician assistant: Respiratory Tract Infection Hx - critical care physician assistant Hx Respiratory Tract Infection No 03/05/25 12:24 STOP Sleep Apnea STOP Sleep Apnea - critical care physician assistant: STOP Sleep Apnea - critical care physician assistant Hx Hypertension Yes 03/05/25 12:24 Hx Sleep Apnea Yes: SLEEPS IN RECLINER 03/05/25 12:24 CPAP No 03/05/25 12:24 BIPAP No 03/05/25 12:24 Do you snore loudly (louder than talking or can be heard Do you often feel tired/ fatigued/ sleepy during daytime? Has anyone observed you stop breathing during sleep? STOP Results Positive 03/05/25 12:24 QUESTION #5 FULL TEXT : Do you snore loudly (louder than talking or can be heard through closed doors)? Tobacco Use History Tobacco Use History - critical care physician assistant: Tobacco Use History - critical care physician assistant Tobacco Use Smoking Status Never smoker 03/05/25 12:24 Hx Tobacco Use No 03/05/25 12:24 Years Smoking Packs Smoked per Day Smoking Cessation Date was within the last 15 years Hx Smoking Cessation Date Hx Smoking Cessation Counseling Hematologic Medial History Hematologic Hx - critical care physician assistant: Hematologic Medical Hx - copy preparer Hx of Blood Transfusion No 03/05/25 12:24 Hx of Transfusion in last 3 No 03/05/25 12:24 Months Date of Last Transfusion (if within last 3 months) Ever experience any problems No 03/05/25 12:24 with transfusion(s)? Specify any problems Hx of Preganancy in last 3 No 03/05/25 12:24 Months Nurse Filling Out Transfusion VLEHMAN 03/05/25 12:24 & Questions: Date: 03/05/25 03/05/25 12:24 Time: 12:33 03/05/25 12:24 Patient unable to answer at this time (ie. confused, unrespo /Reproduction History /Reproductive History - critical care physician assistant: /Reproductive Hx- critical care physician assistant Hx Now No 03/05/25 12:24 Gestational Age (in weeks): EDC: Hx Hx Para Hx Section SAB No 03/05/25 12:24 Active Medications Active Medications: Current Medications Generic Name Dose Route Start Last Admin Trade Name Freq PRN Reason Stop Dose Admin Lactated Ringer's 1,000 mls @ 15 mls/hr 03/07/25 08:45 03/07/25 09:03 IV 15 mls/hr .Q48H MAURICIO Administration PFSH Medical History Wears glasses Cancer Migraine headache Syncope Dietary restriction Gastric reflux History of hiatal hernia History of IBS Non-smoker CPAP (continuous positive airway pressure) dependence Sleep apnea Anxiety Hypertension Asthma De Quervain's tenosynovitis, left Squamous cell carcinoma Home Medications ?Medication ?Instructions ?Recorded ?Last Taken ?Type citalopram 30 mg capsule 20 mg PO DAILY 03/28/24 Unkn own History albuterol sulfate 90 mcg/actuation 2 inh inhalation Q4 H PRN asthma 03/29/24 Unknown History breath activated powder inhaler atenolol 50 mg tablet 75 mg PO QDAY 03/29/2403/07 05:30 History vonoprazan 10 mg tablet (Voquezna) 10 mg PO QDAY #30 t abs 12/19/24 Unknown Rx Allergy/AdvReac Type Severity Reaction Status Date / Time adhesive Allergy Itching Verified 03/07/25 08:58 Sulfa (Sulfonamide Allergy Rash Verified 03/07/25 08:58 Antibiotics) meperidine AdvReac Vomiting Verified 03/07/25 08:58 ANESTHESIA AdvReac Vomiting Uncoded 03/29/24 13:23 Family History Father Acute angina High cholesterol Arthritis Heart disease Hyperlipidemia Myocardial infarction COPD (chronic obstructive pulmonary disease) Hypertension Mother Age: 86 Diabetes High cholesterol Arthritis Myocardial infarction Hypertension Thyroid disorder Asthma Sister Age: 67 Diabetes Diverticulosis GERD (gastroesophageal reflux disease) Anxiety Arthritis Heart disease Hypertension Esophageal spasm Grandfather High cholesterol Heart disease Myocardial infarction Hypertension Grandmother Diabetes Diverticulosis High cholesterol Arthritis Hypertension Parkinsons disease Meniere disease Hiatal hernia Surgical History History of hysterectomy History of squamous cell carcinoma excision History of surgery on left wrist Hx of cholecystectomy Social History current occupational status: retired Smoking Status: Never smoker alcohol intake: current alcohol intake frequency: holidays/special occasions only substance use type: does not use Review of Systems (Anesthesia) ROS Narrative System reviewed and no additional complaints, except as documented.
--- NOTE | 2025-03-07 09:15 | COLBX_PTH ---
PATIENT: ALAN RENAE LOC: EN U#:[id number] AGE/SX: 65/F ROOM: RE03/07/[address]: Dr. Jayy Stone DO : 1960 BED: DIS: 03/07/2025 SPEC #: [id number] RECD: 03/07/25 11:34 STATUS: SEVERIANO REDeniz #: [id number] SCHUYLER: 03/07/25 09:[address]: Jayy Stone DEPT: SURGICAL PATHOLOGY RECD BY: Diego Klein ENTERED: 03/07/25 13:30 SP TYPE: COLON BX OT DR: Dr. Toi Gonsales MD Tissues: A - Cecum, NOS Procedures: Surgery Specimen Level IV HEADER OPERATION: Colonoscopy, biopsy PRE-OP DIAGNOSIS: GERD, irritable bowel syndrome, diarrhea TISSUE SUBMITTED: A- Cecum biopsy MICROSCOPIC DIAGNOSIS A. Cecum, biopsy: * Focal active colitis - see note. Note: Focal mild acute inflammation is noted without features of chronicity. This is a nonspecific finding which may result from bowel prep artifact, mild infection, medication injury (eg: NSAIDs) and ischemia. Recommend correlation with clinical and endoscopic findings. MICROSCOPIC DESCRIPTION Slides are reviewed. GROSS DESCRIPTION A. Received in fixative is one container labeled with the patient's name and designated Cecum biopsy. The specimen consists of three irregular fragments of black tissue that measure 0.3 to 0.6 cm. The specimen is totally submitted in one cassette. MD 03/07/2025 CPT:94684
--- NOTE | 2025-03-07 09:15 | COLBX_PTH ---
PATIENT: ALAN RENAE LOC: EN U#:[id number] AGE/SX: 65/F ROOM: RE03/07/[address]: Dr. Jayy Stone DO : 1960 BED: DIS: 03/07/2025 SPEC #: [id number] RECD: 03/07/25 11:34 STATUS: SEVERIANO REDeniz #: [id number] SCHUYLER: 03/07/25 09:[address]: Jayy Stone DEPT: SURGICAL PATHOLOGY RECD BY: Diego Klein ENTERED: 03/07/25 13:30 SP TYPE: COLON BX OT DR: Dr. Toi Gonsales MD Tissues: A - Cecum, NOS Procedures: Surgery Specimen Level IV HEADER OPERATION: Colonoscopy, biopsy PRE-OP DIAGNOSIS: GERD, irritable bowel syndrome, diarrhea TISSUE SUBMITTED: A- Cecum biopsy MICROSCOPIC DIAGNOSIS A. Cecum, biopsy: * Focal active colitis - see note. Note: Focal mild acute inflammation is noted without features of chronicity. This is a nonspecific finding which may result from bowel prep artifact, mild infection, medication injury (eg: NSAIDs) and ischemia. Recommend correlation with clinical and endoscopic findings. MICROSCOPIC DESCRIPTION Slides are reviewed. GROSS DESCRIPTION A. Received in fixative is one container labeled with the patient's name and designated Cecum biopsy. The specimen consists of three irregular fragments of black tissue that measure 0.3 to 0.6 cm. The specimen is totally submitted in one cassette. SD 03/07/2025 CPT:74944
--- NOTE | 2025-03-07 09:16 | HP.PCM_ITS ---
HPI - General General Date of Admission: 03/07/25 Date of Service: 03/07/25 Chief Complaint: Diarrhea HPI Narrative ALAN RENAE, is a 65 F who presents [ ] [facility] Medical History Wears glasses Cancer Migraine headache Syncope Dietary restriction Gastric reflux History of hiatal hernia History of IBS Non-smoker CPAP (continuous positive airway pressure) dependence Sleep apnea Anxiety Hypertension Asthma De Quervain's tenosynovitis, left Squamous cell carcinoma Home Medications ?Medication ?Instructions ?Recorded ?Last Taken ?Type citalopram 30 mg capsule 20 mg PO DAILY 03/28/24 Unkn own History albuterol sulfate 90 mcg/actuation 2 inh inhalation Q4 H PRN asthma 03/29/24 Unknown History breath activated powder inhaler atenolol 50 mg tablet 75 mg PO QDAY 03/29/2403/07 05:30 History vonoprazan 10 mg tablet (Voquezna) 10 mg PO QDAY #30 t abs 12/19/24 Unknown Rx Allergy/AdvReac Type Severity Reaction Status Date / Time adhesive Allergy Itching Verified 03/07/25 08:58 Sulfa (Sulfonamide Allergy Rash Verified 03/07/25 08:58 Antibiotics) meperidine AdvReac Vomiting Verified 03/07/25 08:58 ANESTHESIA AdvReac Vomiting Uncoded 03/29/24 13:23 Family History Father Acute angina High cholesterol Arthritis Heart disease Hyperlipidemia Myocardial infarction COPD (chronic obstructive pulmonary disease) Hypertension Mother Age: 86 Diabetes High cholesterol Arthritis Myocardial infarction Hypertension Thyroid disorder Asthma Sister Age: 67 Diabetes Diverticulosis GERD (gastroesophageal reflux disease) Anxiety Arthritis Heart disease Hypertension Esophageal spasm Grandfather High cholesterol Heart disease Myocardial infarction Hypertension Grandmother Diabetes Diverticulosis High cholesterol Arthritis Hypertension Parkinsons disease Meniere disease Hiatal hernia Surgical History History of hysterectomy History of squamous cell carcinoma excision History of surgery on left wrist Hx of cholecystectomy Social History current occupational status: retired Smoking Status: Never smoker alcohol intake: current alcohol intake frequency: holidays/special occasions only substance use type: does not use Vital Signs Vital Signs Vital Signs: 03/07/25 08:59 03/07/25 08:59 03/07/25 09:15 Temperature 97.7 F L 97.7 F L Temperature Source Temporal Pulse Rate 53 L 53 L Respiratory Rate 18 18 Respiratory Pattern Normal Blood Pressure 138/81 H 138/81 H Blood Pressure Mean 100 Blood Pressure Source Monitor Blood Pressure Position Sitting Blood Pressure Location Left Arm Pulse Ox 100 100 Oxygen Delivery Method Room Air Room Air Weight Weight: 211 lb 10.3 oz Body Mass Index (BMI) 37.5
--- NOTE | 2025-03-07 09:16 | HP.PCM_ITS ---
HPI - General General Date of Admission: 03/07/25 Date of Service: 03/07/25 Chief Complaint: Diarrhea HPI Narrative LAAN RENAE, is a 65 F who presents [ ] [facility] Medical History Wears glasses Cancer Migraine headache Syncope Dietary restriction Gastric reflux History of hiatal hernia History of IBS Non-smoker CPAP (continuous positive airway pressure) dependence Sleep apnea Anxiety Hypertension Asthma De Quervain's tenosynovitis, left Squamous cell carcinoma Home Medications ?Medication ?Instructions ?Recorded ?Last Taken ?Type citalopram 30 mg capsule 20 mg PO DAILY 03/28/24 Unkn own History albuterol sulfate 90 mcg/actuation 2 inh inhalation Q4 H PRN asthma 03/29/24 Unknown History breath activated powder inhaler atenolol 50 mg tablet 75 mg PO QDAY 03/29/2403/07 05:30 History vonoprazan 10 mg tablet (Voquezna) 10 mg PO QDAY #30 t abs 12/19/24 Unknown Rx Allergy/AdvReac Type Severity Reaction Status Date / Time adhesive Allergy Itching Verified 03/07/25 08:58 Sulfa (Sulfonamide Allergy Rash Verified 03/07/25 08:58 Antibiotics) meperidine AdvReac Vomiting Verified 03/07/25 08:58 ANESTHESIA AdvReac Vomiting Uncoded 03/29/24 13:23 Family History Father Acute angina High cholesterol Arthritis Heart disease Hyperlipidemia Myocardial infarction COPD (chronic obstructive pulmonary disease) Hypertension Mother Age: 86 Diabetes High cholesterol Arthritis Myocardial infarction Hypertension Thyroid disorder Asthma Sister Age: 67 Diabetes Diverticulosis GERD (gastroesophageal reflux disease) Anxiety Arthritis Heart disease Hypertension Esophageal spasm Grandfather High cholesterol Heart disease Myocardial infarction Hypertension Grandmother Diabetes Diverticulosis High cholesterol Arthritis Hypertension Parkinsons disease Meniere disease Hiatal hernia Surgical History History of hysterectomy History of squamous cell carcinoma excision History of surgery on left wrist Hx of cholecystectomy Social History current occupational status: retired Smoking Status: Never smoker alcohol intake: current alcohol intake frequency: holidays/special occasions only substance use type: does not use Vital Signs Vital Signs Vital Signs: 03/07/25 08:59 03/07/25 08:59 03/07/25 09:15 Temperature 97.7 F L 97.7 F L Temperature Source Temporal Pulse Rate 53 L 53 L Respiratory Rate 18 18 Respiratory Pattern Normal Blood Pressure 138/81 H 138/81 H Blood Pressure Mean 100 Blood Pressure Source Monitor Blood Pressure Position Sitting Blood Pressure Location Left Arm Pulse Ox 100 100 Oxygen Delivery Method Room Air Room Air Weight Weight: 211 lb 10.3 oz Body Mass Index (BMI) 37.5
--- NOTE | 2025-03-07 10:29 | OP.COLON_ITS ---
Patient Name: Michelle Shore Procedure Date: 03/07/2025 9:58 AM Date of : 1960 Age: 65 Procedure: Colonoscopy Indications: Abdominal pain in the right lower quadrant, Abdominal pain in the right upper quadrant Providers: Jayy Stone DO Referring MD: Toi Gonsales Medicines: Monitored Anesthesia Care Patient Profile: This is a 65 year old female. Refer to note in patient chart for documentation of history and physical. Last Colonoscopy: 10 years ago. Complications: No immediate complications. Procedure: Pre-Anesthesia Assessment: - Prior to the procedure, a History and Physical was performed, and patient medications and allergies were reviewed. The patient is competent. The risks and benefits of the procedure and the sedation options and risks were discussed with the patient. All questions were answered and informed consent was obtained. Patient identification and proposed procedure were verified by the physician in the pre-procedure area. Mental Status Examination: alert and oriented. Airway Examination: normal oropharyngeal airway and neck mobility. Respiratory Examination: clear to auscultation. CV Examination: normal. Prophylactic Antibiotics: The patient does not require prophylactic antibiotics. Prior Anticoagulants: The patient has taken no anticoagulant or antiplatelet agents. ASA Grade Assessment: II - A patient with mild systemic disease. After reviewing the risks and benefits, the patient was deemed in satisfactory condition to undergo the procedure. The anesthesia plan was to use moderate sedation / analgesia (conscious sedation). Immediately prior to administration of medications, the patient was re-assessed for adequacy to receive sedatives. The heart rate, respiratory rate, oxygen saturations, blood pressure, adequacy of pulmonary ventilation, and response to care were monitored throughout the procedure. The physical status of the patient was re-assessed after the procedure. After I obtained informed consent, the scope was passed under direct vision. Throughout the procedure, the patient's blood pressure, pulse, and oxygen saturations were monitored continuously. The colonoscope was introduced through the anus and advanced to the terminal ileum. The colonoscopy was performed without difficulty. The patient tolerated the procedure well. The quality of the bowel preparation was adequate. The terminal ileum, ileocecal valve, appendiceal orifice, and rectum were photographed. Scope In: 10:09:04 AM Scope Withdrawal Time 0 hours 8 minutes 19 seconds Scope Out: 10:19:15 AM Total Procedure Duration Time 0 hours 10 minutes 11 seconds Findings: The perianal and digital rectal examinations were normal. Localized moderate inflammation characterized by congestion (edema) and erythema was found in the cecum. Biopsies were taken with a cold forceps for histology. Verification of patient identification for the specimen was done. Estimated blood loss was minimal. The exam was otherwise without abnormality on direct and retroflexion views. Impression: - Localized moderate inflammation was found in the cecum secondary to colitis. Biopsied. - The examination was otherwise normal on direct and retroflexion views. Recommendation: - Discharge patient to home. - Resume previous diet. - Continue present medications. - Await pathology results. - Repeat colonoscopy in 10 years for screening purposes. - Balsalazide 2250 milligrams daily for 6 weeks Procedure Code(s): --- Professional --- 77581, Colonoscopy, flexible; with biopsy, single or multiple CPT copyright 2021 [employer]. All rights reserved. The codes documented in this report are preliminary and upon wet cleaner machine review may be revised to meet current compliance requirements. Jayy Stone DO 03/07/2025 10:29:14 AM This report has been signed electronically. Number of Addenda: 0 Note Initiated On: 03/07/2025 9:58 AM
--- NOTE | 2025-03-07 10:29 | OP.COLON_ITS ---
Patient Name: Michelle Shore Procedure Date: 03/07/2025 9:58 AM Date of : 1960 Age: 65 Procedure: Colonoscopy Indications: Abdominal pain in the right lower quadrant, Abdominal pain in the right upper quadrant Providers: Jayy Stone DO Referring MD: Toi Gonsales Medicines: Monitored Anesthesia Care Patient Profile: This is a 65 year old female. Refer to note in patient chart for documentation of history and physical. Last Colonoscopy: 10 years ago. Complications: No immediate complications. Procedure: Pre-Anesthesia Assessment: - Prior to the procedure, a History and Physical was performed, and patient medications and allergies were reviewed. The patient is competent. The risks and benefits of the procedure and the sedation options and risks were discussed with the patient. All questions were answered and informed consent was obtained. Patient identification and proposed procedure were verified by the physician in the pre-procedure area. Mental Status Examination: alert and oriented. Airway Examination: normal oropharyngeal airway and neck mobility. Respiratory Examination: clear to auscultation. CV Examination: normal. Prophylactic Antibiotics: The patient does not require prophylactic antibiotics. Prior Anticoagulants: The patient has taken no anticoagulant or antiplatelet agents. ASA Grade Assessment: II - A patient with mild systemic disease. After reviewing the risks and benefits, the patient was deemed in satisfactory condition to undergo the procedure. The anesthesia plan was to use moderate sedation / analgesia (conscious sedation). Immediately prior to administration of medications, the patient was re-assessed for adequacy to receive sedatives. The heart rate, respiratory rate, oxygen saturations, blood pressure, adequacy of pulmonary ventilation, and response to care were monitored throughout the procedure. The physical status of the patient was re-assessed after the procedure. After I obtained informed consent, the scope was passed under direct vision. Throughout the procedure, the patient's blood pressure, pulse, and oxygen saturations were monitored continuously. The colonoscope was introduced through the anus and advanced to the terminal ileum. The colonoscopy was performed without difficulty. The patient tolerated the procedure well. The quality of the bowel preparation was adequate. The terminal ileum, ileocecal valve, appendiceal orifice, and rectum were photographed. Scope In: 10:09:04 AM Scope Withdrawal Time 0 hours 8 minutes 19 seconds Scope Out: 10:19:15 AM Total Procedure Duration Time 0 hours 10 minutes 11 seconds Findings: The perianal and digital rectal examinations were normal. Localized moderate inflammation characterized by congestion (edema) and erythema was found in the cecum. Biopsies were taken with a cold forceps for histology. Verification of patient identification for the specimen was done. Estimated blood loss was minimal. The exam was otherwise without abnormality on direct and retroflexion views. Impression: - Localized moderate inflammation was found in the cecum secondary to colitis. Biopsied. - The examination was otherwise normal on direct and retroflexion views. Recommendation: - Discharge patient to home. - Resume previous diet. - Continue present medications. - Await pathology results. - Repeat colonoscopy in 10 years for screening purposes. - Balsalazide 2250 milligrams daily for 6 weeks Procedure Code(s): --- Professional --- 50415, Colonoscopy, flexible; with biopsy, single or multiple CPT copyright 2021 [employer]. All rights reserved. The codes documented in this report are preliminary and upon customer contact representative review may be revised to meet current compliance requirements. Jayy Stone DO 03/07/2025 10:29:14 AM This report has been signed electronically. Number of Addenda: 0 Note Initiated On: 03/07/2025 9:58 AM
--- NOTE | 2025-03-07 10:29 | OP.PROVAT_ITS ---
03/07/2025 Toi Gonsales Re : Colonoscopy procedure for Michelle Dor Ilda This procedure was performed on February. My impressions and recommendations are as follows: Impressions : - Localized moderate inflammation was found in the cecum secondary to colitis. Biopsied. - The examination was otherwise normal on direct and retroflexion views. Recommendations : - Discharge patient to home. - Resume previous diet. - Continue present medications. - Await pathology results. - Repeat colonoscopy in 10 years for screening purposes. - Balsalazide 2250 milligrams daily for 6 weeks My findings are described in the full procedure note, which is enclosed. If I can be of further assistance, please feel free to contact me at . Sincerely, Jayy Stone, 03/07/2025 10:29:14 AM This report has been signed electronically.
--- NOTE | 2025-03-07 10:32 | PCM.POST.ANE ---
Anesthesia: Postop Eval I Current Vital Signs Temperature: 97 F Pulse Rate: 64 Blood Pressure: 111/70 Respiratory Rate: 16 Pulse Ox: 92 Oxygen Delivery Method: Room Air Assessment Airway patent: Yes Spontaneous unlabored respirations: Yes Mental status: Asleep nausea: No Vomiting: No Anesthesia Complication: No Fluid Hydration Crystalloid volume administer (ml): 400 Total IV fluid infused: 400 Progress Note Anesthesia document: Postop Eval 1 completed: Yes
--- NOTE | 2025-03-07 14:07 | PCM.POSTANE2 ---
Anesthesia Postop Eval I Sum Postop Eval Completion status Anesthesia document: Postop Eval 1 completed: Yes Anesthesia Postop Eval I Summary Anesthesia Postop Eval I Summary: Anesthesia Postop Eval I: Assessment Summary Airway patent Yes 03/07/25 10:32 [email or web address] Spontaneous unlabored Yes 03/07/25 10:32 [email or web address] respirations Mental status Asleep 03/07/25 10:32 [email or web address] nausea No 03/07/25 10:32 [email or web address] Vomiting No 03/07/25 10:32 [email or web address] Anesthesia Postop Eval I: Fluid Summary Crystalloid volume administer 400 03/07/25 10:32 [email or web address] (ml) Colloids volume administered ( ml) Blood Product volume administered (ml) Total IV fluid infused 400 03/07/25 10:32 [email or web address] Anesthesia Postop Eval I: Summary Notes Anesthesia Complication No 03/07/25 10:32 [email or web address] Anesthesia Complication Comment: Post-operative progress note Anesthesia: Postop Eval II Evaluation Mental status: Awake and Calm Pain Level: 1 nausea: No Vomiting: No Complications Anesthesia Complication: No
== END 2025-03-07 11:24 | disposition home or self-care (01) ==
LOC: EN 08:10 → AC 08:11
PROVIDERS: PCP Family Medicine; Referring Provider Family Medicine; Visit Provider Internal Medicine Gastroenterology
PROC: 0DJD8ZZ Inspection of Lower Intestinal Tract, Via Natural or Artificial Opening Endoscopic (ICD-10-PCS; CPT 45378; principal; 2025-03-07 09:10)
DX: K52.9 Noninfective gastroenteritis and colitis, unspecified (principal); K21.9 Gastro-esophageal reflux disease without esophagitis; I10 Essential (primary) hypertension; G47.30 Sleep apnea, unspecified; Z99.89 Dependence on other enabling machines and devices; F41.9 Anxiety disorder, unspecified; Z79.899 Other long term (current) drug therapy; Z90.710 Acquired absence of both cervix and uterus; Z90.49 Acquired absence of other specified parts of digestive tract
CPT/HCPCS: 45380; 88305; J2405